=== PATIENT | male | born 1965 | race Caucasian/White ===

== ENCOUNTER 2024-08-19 11:35 | Emergency (ER) | payer MEDICAID, SELFPAY ==
[2024-08-19 11:44] VITALS: BP 160/100; PULSE 73; TEMP 36.7; O2SAT 99; BMI 35.3
--- NOTE | 2024-08-19 11:54 | ED.GENADUL1 ---
HPI HPI - General Adult General Chief complaint: Urogenital-Male Stated complaint: L FLANK PAIN Time Seen by Provider: 08/19/24 11:41 Source: patient Mode of arrival: walk-in Limitations: no limitations History of Present Illness HPI narrative: 59-year-old male presents to the emergency department for left flank pain. He has had it for 5 or 6 days and it was not precipitated by any injury. No dysuria or hematuria. It is continuous, never goes away. No fever or abdominal pain. Related Data Previous Rx's ?Medication ?Instructions ?Recorded ibuprofen 800 mg tablet 800 mg PO Q8H PRN pain #20 tabs 08/19/24 Allergies Allergy/AdvReac Type Severity Reaction Status Date / Time cephalexin (From Keflex) AdvReac Mild Hives Verified 08/19/24 11:44 Review of Systems ROS Narrative A ten point review of systems is negative except as noted above. PFSH PFSH Social History Little interest or pleasure in doing things: not at all Feeling down, depressed, or hopeless: not at all Exam Narrative Exam Narrative: Nurses note and vital signs reviewed and patient is not hypoxic. General: The patient appears well and in no apparent distress. Patient is resting comfortably on cart. Skin: Warm, dry, no pallor noted. There is no rash noted. Head: Normocephalic, atraumatic Eye: Normal conjunctiva, no drainage Ears, Nose, Mouth, and Throat: oral mucosa is moist. Nares patent. Cardiovascular: Regular Rate and Rhythm Respiratory: Patient is in no distress, no accessory muscle use, lungs are clear to auscultation, no wheezing, rales or rhonchi Back: non-tender, no bruise or rash. He has some mild erythema from using a heating pad. He has no palpable tenderness GI: Soft and nontender Musculoskeletal: The patient has no evidence of calf tenderness, no pitting edema, symmetrical pulses noted bilaterally Neurological: A&O, normal speech Psychiatric: Cooperative Constitutional Vital Signs, click to edit/add: Last Vital Signs Temp 98.0 F 08/19/24 11:44 Pulse 59 L 08/19/24 12:11 Resp 18 08/19/24 12:11 BP 120/82 08/19/24 13:02 Pulse Ox 94 L 08/19/24 12:11 O2 Del Method Room Air 08/19/24 11:44 Course Vital Signs Vital signs: Vital Signs Temperature 98.0 F 08/19/24 11:44 Pulse Rate 73 08/19/24 11:44 Respiratory Rate 18 08/19/24 11:44 Blood Pressure 160/100 H 08/19/24 11:44 Pulse Oximetry 99 08/19/24 11:44 Oxygen Delivery Method Room Air 08/19/24 11:44 Temperature 98.0 F 08/19/24 11:44 Pulse Rate 59 L 08/19/24 12:11 Respiratory Rate 18 08/19/24 12:11 Blood Pressure 120/82 08/19/24 13:02 Pulse Oximetry 94 L 08/19/24 12:11 Oxygen Delivery Method Room Air 08/19/24 11:44 Medical Decision Making MDM Narrative Medical decision making narrative: His workup is negative. CT shows no kidney stones or other cause for his pain. Diverticulosis was noted by the radiologist. Urinalysis shows no blood or white blood cells, no evidence of an infection. He will be treated symptomatically. Treatment diagnosis and follow-up were discussed with the patient and his . Differential Diagnosis Differential Diagnosis: Flank pain, kidney stone, muscle pain, pyelonephritis Lab Data Lab results reviewed: Yes I reviewed the patient's lab results Labs: Lab Results 08/19/24 08/19/24 Range/Units 11:55 11:59 WBC 8.4 (4.0-11.0) 10^3/uL RBC 5.30 (4.70-6.10) 10^6/uL Hgb 16.5 (14.0-18.0) g/dL Hct 48.5 (42.0-54.0) % MCV 91.5 (80.0-94.0) fL MCH 31.1 (25.9-34.0) pg MCHC 34.0 (29.9-35.2) g/dL RDW 13.3 (11.0-15.0) % Plt Count 228 (150-450) 10^3/uL MPV 9.3 L (9.5-13.5) fL Neut % (Auto) 54.1 (43.0-75.0) % Lymph % (Auto) 27.9 (20.5-60.0) % [place] % (Auto) 9.1 (1.7-12.0) % Eos % (Auto) 7.2 H (0.9-7.0) % Baso % (Auto) 1.2 (0.2-2.0) % Neut # (Auto) 4.5 (1.4-6.5) 10^3/uL Lymph # (Auto) 2.3 (1.2-3.8) 10^3/uL [place] # (Auto) 0.8 (0.3-0.8) 10^3/uL Eos # (Auto) 0.6 (0.0-0.7) 10^3/uL Baso # (Auto) 0.1 (0.0-0.1) 10^3/uL Abs Immat Gran (auto) 0.04 H (0.00-0.03) 10^3/uL Imm/Tot Granulo (auto) 0.5 (0.0-0.5) % Sodium 143 (136-145) mmol/L Potassium 4.2 (3.5-5.1) mmol/L Chloride 106 (98-107) mmol/L Carbon Dioxide 27.5 (21.0-32.0) mmol/L Anion Gap 13.7 BUN 13.0 (7.0-18.0) mg/dL Creatinine 1.03 (0.70-1.30) mg/dL Est GFR ( Amer) >60 (>=60 mL/min/1.73m^2) Est GFR (Non-Af Amer) >60 (>=60 mL/min/1.73m^2) BUN/Creatinine Ratio 12.6 Glucose 107 H (74-106) mg/dL Calcium 8.9 (8.5-10.1) mg/dL Urine Color Yellow (YELLOW) Urine Clarity Clear (CLEAR) Urine pH 6.0 (5.0-9.0) Ur Specific [place] 1.020 (1.005-1.025) Urine Protein Negative (NEG/TRACE) mg/dL Urine Glucose (UA) Negative (NEGATIVE) mg/dL Urine Ketones Negative (NEGATIVE) mg/dL Urine Occult Blood Negative (NEGATIVE) Urine Nitrite Negative (NEGATIVE) Urine Bilirubin Negative (NEGATIVE) Urine Urobilinogen 0.2 (0.2-1.0) EU/dL Ur Leukocyte Esterase Negative (NEGATIVE) Urine RBC None seen (0-2) #/HPF Urine WBC None seen (NONE SEEN) #/HPF Ur Squamous Epith Cells Rare (NONE/RARE) #/LPF Urine Crystals None seen (None Seen) #/HPF Urine Bacteria None seen (NONE SEEN) #/HPF Urine Casts None seen (NONE SEEN) #/LPF Urine Mucus Trace A (NONE SEEN) Imaging Data CT scan - abdomen: Radiologist's impression: IMPRESSION: Left colon diverticulosis. Urinary bladder wall thickening. Underdistention versus cystitis.. No obstructive uropathy. Impression dictated by: Tommie Willis M.D. 08/19/2024 1:14 PM Dictation Location: [facility] Electronically authenticated by: [id number] Y Date: 08/19/2024 13:14 Discharge Plan Discharge Chief Complaint: Urogenital-Male Clinical Impression: Flank pain Patient Disposition: Home, Self-Care Time of Disposition Decision: 13:19 Condition: Good Mode of Transportation: Private Vehicle Prescriptions / Home Meds: New ibuprofen 800 mg tablet 800 mg PO Q8H PRN (Reason: pain) Qty: 20 0RF Print Language: Yakut Instructions: Flank Pain (ED) Referrals: LISA GAY [Primary Care Provider, Family Practice] - 1 week
[2024-08-19] MEDS: MORPHINE SULFATE 4 MG/ML VIAL IV (12:01)
[2024-08-19 12:11] VITALS: PULSE 59; O2SAT 94
[2024-08-19 12:12] LABS: Hematocrit 48.5 % (42.0-54.0); Hemoglobin 16.5 g/dL (14.0-18.0); Immature Granulocytes Abs Auto 0.04 10^3/uL (0.00-0.03); Immature Granulocytes Pct Auto 0.5 % (0.0-0.5); Lymphocytes Absolute Auto 2.3 10^3/uL (1.2-3.8); Mean Corpuscular HGB Conc 34.0 g/dL (29.9-35.2); Mean Corpuscular Hemoglobin 31.1 pg (25.9-34.0); Mean Corpuscular Volume 91.5 fL (80.0-94.0); Platelet Count 228 10^3/uL (150-450); Red Blood Count 5.30 10^6/uL (4.70-6.10); White Blood Count 8.4 10^3/uL (4.0-11.0)
[2024-08-19 12:12] LABS: Glucose Urine UA NEGATIVE (NEGATIVE)
--- NOTE | 2024-08-19 12:15 | CT_ITS ---
The [address] [address] Patient Name: AMINATA ABEBE MRN: [id number] date: 1965 Sex: M Assigned Patient Location: ER Current Patient Location: ER Accession/Order Number: [id number] Exam Date: 08/19/2024 13:09 Report Date: 08/19/2024 13:14 At the request of: JEFFREY ORTIZ MD Procedure: CT abdomen pelvis w con CT Abdomen and Pelvis withcontrast TECHNIQUE: Axial imaging with 2-D reconstruction.100 cc of Omnipaque 350. The CT exam was performed using one or more the following dose reduction techniques: Automated exposure control, adjustment of the MA and/or Kv according to patient size, or use of the iterative reconstruction technique. COMPARISON: None History: Left flank pain. LIMITATIONS: None LOWER THORAX Unremarkable LIVER: Unremarkable GALLBLADDER: No gallbladder abnormality identified. BILE DUCTS: No dilatation SPLEEN: Unremarkable PANCREAS: Unremarkable ADRENAL GLANDS: Unremarkable KIDNEYS:No obstructive uropathy. No nephrolithiasis. Tiny left cysts. AORTA: No abdominal aortic aneurysm identified. RETROPERITONEUM: No significant retroperitoneal abnormalities identified. MESENTERY:Unremarkable STOMACH:Unremarkable SMALL BOWEL: The small bowel loops are nondistended. APPENDIX: The appendix is normal. COLON: Left diverticulosis. URINARY BLADDER: Post surgical changes. Mild urinary bladder wall thickening. Underdistention versus cystitis. REPRODUCTIVE SYSTEM: Reproductive structures are unremarkable. PNEUMOPERITONEUM: None PERITONEAL FLUID:None BONY STRUCTURES: Mild degenerative changes ABDOMINAL WALL: Unremarkable CT/CT abdomen pelvis w con IMPRESSION: Left colon diverticulosis. Urinary bladder wall thickening. Underdistention versus cystitis.. No obstructive uropathy. Impression dictated by: Tommie Willis M.D. 08/19/2024 1:14 PM Dictation Location: [facility] Electronically authenticated by: [id number] Y Date: 08/19/2024 13:14
[2024-08-19 12:20] LABS: Anion Gap 13.7; Blood Urea Nitrogen 13.0 mg/dL (7.0-18.0); Calcium 8.9 mg/dL (8.5-10.1); Carbon Dioxide 27.5 mmol/L (21.0-32.0); Chloride 106 mmol/L (98-107); Estimated GFR (African America >60 (>=60 mL/min/1.73m^2); Estimated GFR (Non-African Ame >60 (>=60 mL/min/1.73m^2); Glucose 107 mg/dL (74-106); Potassium 4.2 mmol/L (3.5-5.1); Sodium 143 mmol/L (136-145)
[2024-08-19 12:20] LABS: Cast Seen? NONE SEEN #/LPF (NONE SEEN); Crystals Seen? None Seen #/HPF (None Seen)
[2024-08-19 13:02] VITALS: BP 120/82
== END 2024-08-19 13:36 | disposition home or self-care (01) ==
PROVIDERS: Emergency Provider Emergency Medicine; PCP Family Medicine
DX: R10.9 Unspecified abdominal pain (principal); K57.30 Diverticulosis of large intestine without perforation or abscess without bleeding
CPT/HCPCS: 36415; 74177; 80048; 81001; 85025; 96374; 99284; J2270; Q9967